=== PATIENT | male | born 1985 | race Caucasian/White ===

== ENCOUNTER 2023-01-26 19:59 | Emergency (ER) | payer MEDICARE, OTHER ==
[~2023-01-26] VITALS: Ht 177.8 cm; Wt 81.0 kg
[2023-01-26 20:35] VITALS: BP 124/71; PULSE 94; RESP 18; TEMP 98.1
[2023-01-26] MEDS ORDERED: AMOX TR/POT CLAV 875 MG/125 MG TABLET PO ONE (22:00)
[2023-01-26] MEDS ORDERED: IBUPROFEN 600 MG TABLET PO ONE (22:00)
[2023-01-26] MEDS ORDERED: AMOX1TAB16 PO (22:02)
[2023-01-26] MEDS ORDERED: IBUP-1492 PO (22:02)
== END 2023-01-26 22:32 | disposition home or self-care (01) ==
LOC: EMS 19:59
DX: K04.7 Periapical abscess without sinus (principal); F17.210 Nicotine dependence, cigarettes, uncomplicated; Z98.890 Other specified postprocedural states
CPT/HCPCS: 99283